=== PATIENT | male | born 1995 | race Asian ===

== ENCOUNTER 2019-10-18 04:53 | Emergency (ER) | payer OTHER ==
[~2019-10-18] VITALS: Ht 180.3 cm; Wt 54.4 kg
[2019-10-18 05:00] VITALS: BP 119/62
--- NOTE | 2019-10-18 05:00 | NUR ---
TO BED # 08 AMBULATORY
--- NOTE | 2019-10-18 05:10 | NUR ---
PATIENT LAYING IN BED. BED IN LOW LOCKED POSITION. GIRLFRIEND AT BEDSIDE. ASSESSMENT COMPLETED.
--- NOTE | 2019-10-18 05:18 | NUR ---
DR GALAN AT BEDSIDE.
[2019-10-18] MEDS ORDERED: NACL 0.9% 1,000 ML IV SCH (05:21)
[2019-10-18] MEDS ORDERED: ONDANSETRON 4 MG/2 ML VIAL IVP ONE (05:30)
[2019-10-18] MEDS ORDERED: KETOROLAC 30 MG/ML VIAL IVP ONE (05:30)
--- NOTE | 2019-10-18 05:40 | NUR ---
18G IV STARTED IN LEFT AC. FLUSHED EASILY WITH NO PAIN OR SWELLING NOTED.
[2019-10-18 05:54] LABS: BASOPHILS % (AUTO) 0.1 % (0.0-2.0); EOSINOPHILS % (AUTO) 0.2 % (0.0-4.0); HEMATOCRIT 42.9 % (36-52); HEMOGLOBIN 14.4 g/dL (12.0-18.0); LYMPHOCYTES # (AUTO) 0.4 K/uL (2.0-11.5); LYMPHOCYTES % (AUTO) 3.5 % (20.5-51.1); MEAN CORPUSCULAR HEMOGLOBIN 31 pg (27-31); MEAN CORPUSCULAR HGB CONC 34 g/dL (33-37); MEAN CORPUSCULAR VOLUME 90.5 fL (80-94); MONOCYTES # (AUTO) 0.6 K/uL (0.8-1.0); MONOCYTES % (AUTO) 5.2 % (1.7-9.3); NEUTROPHILS # (AUTO) 11.2 K/uL (1.8-7.7); PLATELET COUNT (AUTO) 182 K/uL (140-450); RED BLOOD CELL COUNT(AUTO) 4.74 MIL/uL (4.20-6.10); RED CELL DISTRIBUTION WIDTH 12.7 % (11.6-13.7); WHITE BLOOD COUNT (AUTO) 12.3 K/uL (4.8-10.8)
[2019-10-18 06:03] LABS: ANION GAP 13.6 (8-16); CARBON DIOXIDE 27.2 mmol/L (21-32); CREATININE 0.8 mg/dL (0.7-1.3); POTASSIUM 3.8 mmol/L (3.5-5.1)
--- NOTE | 2019-10-18 06:08 | NUR ---
PATIENT COMPLAINING ABOUT BEING COLD. GIVEN WARM BLANKET.
[2019-10-18 06:09] LABS: ALBUMIN 4.1 g/dL (3.4-5.0); TOTAL BILIRUBIN 0.6 mg/dL (0.0-1.0)
--- NOTE | 2019-10-18 06:20 | NUR ---
PATIENT RETURNED FROM XRAY IN WHEELCHAIR
--- NOTE | 2019-10-18 06:30 | NUR ---
DR GALAN AT BEDSIDE.
--- NOTE | 2019-10-18 06:40 | NUR ---
Patient discharged with v/s stable. Written and verbal after care instructions given and explained. Patient alert, oriented and verbalized understanding of instructions. Ambulatory with steady gait. All questions addressed prior to discharge. ID band removed. IV removed. Patient advised to follow up with PMD. Rx of Fred Quick given. Patient educated on indication of medication including possible reaction and side effects. Opportunity to ask questions provided and answered.
[2019-10-18 06:51] VITALS: BP 119/62
--- NOTE | 2019-10-18 06:51 | NUR ---
Note jean carlosone in EDM - 10/18/19 at 0652 by PAULIE Patient discharged with v/s stable. Written and verbal after care instructions given and explained. Patient alert, oriented and verbalized understanding of instructions. Ambulatory with steady gait. All questions addressed prior to discharge. ID band removed. Patient advised to follow up with PMD. Rx of Fred Quick given. Patient educated on indication of medication including possible reaction and side effects. Opportunity to ask questions provided and answered.
== END 2019-10-18 06:51 | disposition home or self-care (01) ==
LOC: MED 04:53
DX: K56.0 Paralytic ileus (principal); R11.2 Nausea with vomiting, unspecified
CPT/HCPCS: 36415; 74022; 80053; 83605; 85025; 87040; 96374; 96375; 99284; J1885; J2405; J7030; Q0092